=== PATIENT | female | born 1950 | race Caucasian/White ===

== ENCOUNTER 2017-04-28 07:10 | Emergency (ER) | payer BC ==
[2017-04-28 07:22] VITALS: BMI 22.9
[2017-04-28 07:26] VITALS: RESP 18; TEMP 98.7
--- NOTE | 2017-04-28 08:01 | ED PDOC ---
Arrival/HPI - General Chief Complaint: High Blood Pressure Time Seen by Provider: 04/28/17 07:36 Historian: Patient - History of Present Illness Narrative History of Present Illness (Text): 04/28/17 07:56 A 66 year old female presents to the emergency department complaining of high blood pressure. Patient reports she was seen by her still operator batch or continuous yesterday and informed her blood pressure was slightly elevated. She reports having mild chest heaviness since last night. Patient denies any fever, chills, nausea, vomiting, abdominal pain, shortness of breath, cough or any other complaints. Patient was recently seen by PMD 2 weeks ago and her terra cotta setter 2 days ago. PMD: Dr. Owusu Time/Duration: Other (last night) Symptom Course: Unchanged Quality: Other Context: Home Past Medical History - Provider Review Nursing Documentation Reviewed: Yes - Infectious Disease Hx of Infectious Diseases: None - Reproductive Menopause: Yes - Hematological/Oncological Hx Cancer: Yes (LEFT BREAST CA 2004) - Psychiatric Hx Depression: Yes Hx Substance Use: No - Surgical History Other/Comment: LEFT BREAST LUMPECTOMY 2004 - Anesthesia Hx Anesthesia: Yes Hx Anesthesia Reactions: No Hx Malignant Hyperthermia: No Family/Social History - Physician Review Nursing Documentation Reviewed: Yes Family/Social History: No Known Family HX Smoking Status: Never Smoked Hx Alcohol Use: No Hx Substance Use: No Allergies/Home Meds Allergies/Adverse Reactions: Allergies No Known Allergies Allergy (Verified 02/09/17 09:02) Home Medications: Home Meds Medication Instructions Recorded Confirmed Ergocalciferol [Drisdol] 50,000 iu PO QWK 02/09/17 02/09/17 Review of Systems - Physician Review All systems were reviewed & negative as marked: Yes - Review of Systems Constitutional: absent: Fevers, Night Sweats Respiratory: absent: SOB, Cough Cardiovascular: Chest Pain Gastrointestinal: absent: Abdominal Pain, Nausea, Vomiting Physical Exam Vital Signs Reviewed: Yes Vital Signs Temp Pulse Resp BP Pulse Ox 04/28/17 10:31 59 L 18 150/68 97 04/28/17 07:10 98.7 F 62 18 150/61 96 Temperature: Afebrile Blood Pressure: Normal Pulse: Regular Respiratory Rate: Normal Appearance: Positive for: Well-Appearing, Non-Toxic, Comfortable Pain Distress: None Mental Status: Positive for: Alert and Oriented X 3 - Systems Exam Head: Present: Atraumatic, Normocephalic Pupils: Present: PERRL Extroacular Muscles: Present: EOMI Conjunctiva: Present: Normal Mouth: Present: Moist Mucous Membranes Neck: Present: Normal Range of Motion Respiratory/Chest: Present: Clear to Auscultation, Good Air Exchange. No: Respiratory Distress, Accessory Muscle Use Cardiovascular: Present: Regular Rate and Rhythm, Normal S1, S2. No: Murmurs Abdomen: Present: Normal Bowel Sounds. No: Tenderness, Distention, Peritoneal Signs Back: Present: Normal Inspection Upper Extremity: Present: Normal Inspection. No: Cyanosis, Edema Lower Extremity: Present: Normal Inspection. No: Edema Neurological: Present: GCS=15, CN II-XII Intact, Speech Normal Skin: Present: Warm, Dry, Normal Color. No: Rashes Psychiatric: Present: Alert, Oriented x 3, Normal Insight, Normal Concentration Medical Decision Making ED Course and Treatment: 04/28/17 07:55 Impression: A 66 year old female with high blood pressure and mild chest heaviness. Plan: -- Chest xray -- EKG -- Labs -- Reassess and disposition Progress Notes: EKG shows sinus bradycardia at 59 BPM with normal intervals. Interpreted by me. Report Date : 04/28/2017 09:33:30 Procedure: Chest xray Dictator : [place] Gotti IMPRESSION: No active disease. 04/28/17 10:[address] Owusu, states to admit patient for further workup. 04/28/17 10:33 I have discussed the results and plan with the patient. Patient does not want to stay in the hospital and wishes to go home. The patient is choosing to leave against medical advice. I have personally explained to the patient that choosing to do so may result in permanent bodily harm or . I have discussed at great length that without further evaluation and monitoring there may be unforeseen circumstances and/or deterioration causing permanent bodily harm or as a result of their choice. The patient is alert, oriented, and shows the mental capacity to make clear decisions regarding the patients health care at this time. The patient continues to wish to leave against medical advice. In light of the patients decision to leave against medical advice, follow-up has been arranged and the patient is aware of the importance to following up as instructed. The patient has been advised that they should return to the emergency room immediately if they change their mind at any time, or if their condition begins to change or worsen in any way. - Lab Interpretations Lab Results: 04/28/17 08:00 04/28/17 08:00 Lab Results 04/28/17 08:00: Sodium 141, Potassium 3.8, Chloride 107, Carbon Dioxide 27, Anion Gap 11, BUN 11, Creatinine 0.6 L, Est GFR ( Amer) > 60, Est GFR ( Non-Af Amer) > 60, Random Glucose 103, Calcium 9.2, Magnesium 2.2, Total Bilirubin 0.7, AST 60 H, ALT 40, Alkaline Phosphatase 64, Lactate Dehydrogenase 487, Total Creatine Kinase 71, Troponin I < 0.01, Total Protein 7.7, Albumin 4.1 , Globulin 3.6, Albumin/Globulin Ratio 1.1 04/28/17 08:00: WBC 5.7, RBC 4.30, Hgb 13.9, Hct 40.5, MCV 94.2, MCH 32.3, MCHC 34.3, RDW 12.4, Plt Count 252, MPV 9.1, Gran % 44.6 L, Lymph % (Auto) 44.0 H, [place] % (Auto) 5.6, Eos % (Auto) 5.1 H, Baso % (Auto) 0.7, Gran # 2.53, Lymph # 2.5, [place] # 0.3, Eos # 0.3, Baso # 0.04 I have reviewed the lab results: Yes - RAD Interpretation Radiology Orders: 04/28/17 07:37 CHEST PORTABLE [RAD] Stat - Medication Orders Current Medication Orders: Discontinued Medications Aspirin (Aspirin) 325 mg PO STAT STA Stop: 04/28/17 08:08 Last Admin: 04/28/17 08:28 Dose: 325 mg - Scribe Statement The provider has reviewed the documentation as recorded by the Lizbeth Herrera Provider Scribe Attestation: All medical record entries made by the Scribdesiree were at my direction and personally dictated by me. I have reviewed the chart and agree that the record accurately reflects my personal performance of the history, physical exam, medical decision making, and the department course for this patient. I have also personally directed, reviewed, and agree with the discharge instructions and disposition. Disposition/Present on Arrival - Present on Arrival Any Indicators Present on Arrival: No History of DVT/PE: No History of Uncontrolled Diabetes: No Urinary Catheter: No History of Decub. Ulcer: No History Surgical Site Infection Following: None - Disposition Have Diagnosis and Disposition been Completed?: Yes Diagnosis: Chest pain, Hypertension Disposition: AGAINST MEDICAL ADVICE Disposition Time: 10:00 Condition: GUARDED Discharge Instructions (ExitCare): Chest Pain (ED), Hypertension (ED) Additional Instructions: Thank you for letting us take care of you today. You were treated for chest pain and high blood pressure. The emergency medical care you received today was directed at your acute symptoms. If you were prescribed any medication, please fill it and take as directed. It may take several days for your symptoms to resolve. Return to the Emergency Department if your symptoms worsen, do not improve, or if you have any other problems. Please contact your doctor or call one of the physicians/clinics you have been referred to that are listed on the Patient Visit Information form that is included in your discharge packet. Bring any paperwork you were given at discharge with you along with any medications you are taking to your follow up visit. Our treatment cannot replace ongoing medical care by a primary care provider (PCP) outside of the emergency department. Thank you for allowing the [facility] team to be part of your care today. Follow up with your doctor in tomorrow for re-evaluation and further management. Referrals: Ly Victoria MD [Primary Care Provider] - Follow up with primary Forms: [facility] (Portuguese)
[2017-04-28 08:32] LABS: HEMATOCRIT 40.5 % (36.0-48.0); WHITE BLOOD COUNT 5.7 10^3/ul (4.5-11.0)
[2017-04-28 08:33] LABS: BASO # 0.04 K/mm3 (0.0-2.0); BASO % 0.7 % (0.0-3.0); EOS # 0.3 (0.0-0.7); EOS % 5.1 % (1.5-5.0); GRAN # 2.53 (1.4-6.5); GRAN % 44.6 % (50.0-68.0); LYMPH # 2.5 (1.2-3.4); MEAN CELL VOLUME 94.2 fl (80.0-105.0); MEAN CORPUSCULAR HEMOGLOBIN 32.3 pg (25.0-35.0); MEAN CORPUSCULAR HGB CONC 34.3 g/dl (31.0-37.0); MEAN PLATELET VOLUME 9.1 fl (7.0-11.0); MONO # 0.3 (0.1-0.6); MONO % 5.6 % (1.0-6.0); RED CELL DISTRIBUTION WIDTH 12.4 % (11.5-14.5)
--- NOTE | 2017-04-28 09:35 | RAD ---
HISTORY: hypertension COMPARISON: -2014 FINDINGS: LUNGS: No active pulmonary disease. PLEURA: No significant pleural effusion identified, no pneumothorax apparent. CARDIOVASCULAR: Heart size probably top-normal -study rotated slightly towards the right. OSSEOUS STRUCTURES: Thoraco lumbar spondylosis VISUALIZED UPPER ABDOMEN: Normal. OTHER FINDINGS: Surgical clips over left axilla noted unchanged compatible with prior left breast surgery IMPRESSION: No active disease.
[2017-04-28 10:04] LABS: ALB/GLOB RATIO 1.1 (1.1-1.8); ALKALINE PHOSPHATASE 64 U/L (38-126); ALT/SGPT 40 U/L (7-56); AST/SGOT 60 U/L (14-36); BILIRUBIN,TOTAL 0.7 mg/dL (0.2-1.3); BLOOD UREA NITROGEN 11 mg/dL (7-21); CALCIUM 9.2 mg/dL (8.4-10.5); CARBON DIOXIDE 27 mmol/L (21-33); CHLORIDE 107 mmol/L (98-107); GFR AFRICAN-AMERICAN > 60; GLUCOSE,RANDOM 103 mg/dL (70-110); MAGNESIUM 2.2 mg/dL (1.7-2.2); TOTAL PROTEIN 7.7 g/dL (5.8-8.3)
[2017-04-28 10:10] LABS: TROPONIN I < 0.01 ng/mL
[2017-04-28 10:32] VITALS: BP 150/68; PULSE 59; O2SAT 97
[2017-04-28 12:00] LABS: POTASSIUM 3.8 mmol/L (3.6-5.0); SODIUM 141 mmol/L (132-148)
--- NOTE | 2017-04-28 17:12 | CARD ---
APPROVED REPORT EKG Measurement Heart [id number] <Conclusion> Sinus bradycardia Nonspecific T wave abnormality Abnormal ECG
== END 2017-04-28 10:43 | disposition left against medical advice (07) ==
LOC: ED 07:10
DX: I10 Essential (primary) hypertension (principal); R07.9 Chest pain, unspecified; Z85.3 Personal history of malignant neoplasm of breast

== ENCOUNTER 2018-07-13 08:26 | Outpatient (CLI) | payer BC | END 2018-07-13 08:27 | disposition home or self-care (01) | LOC: RAD 08:26 | DX: Z12.31 Encounter for screening mammogram for malignant neoplasm of breast (principal); M81.0 Age-related osteoporosis without current pathological fracture; Z85.3 Personal history of malignant neoplasm of breast ==